=== PATIENT | male | born 1975 | race Caucasian/White ===

== ENCOUNTER 2020-07-18 09:04 | Outpatient (CLI) | payer BC, SELFPAY ==
--- NOTE | 2020-07-31 14:57 | WPDHOMESLEEP ---
Sleep Study - Home Unattended Date of Study: 07/18/20 Ordering Provider: Savannah Arango PA-C Interpreting Provider: Celsa Reyes MD Home Sleep Study Type: Apnea Link Air Height: 1.88 m Weight: 120.202 kg Body Mass Index: 34.0 Neck Circumference (inches): 16 [place]: 14 Reason for Sleep Study Waking multiple times at night, non restorative sleep, excessive daytime sleepiness Sleep History Boni Severino is a 45-year-old man with anxiety who complains of waking up multiple times during the night. Sometimes, he is not able to go back to sleep. He wakes up tired every day. He takes a nap as soon as work is over. He has fatigue and complete lack of energy. He has difficulty falling asleep, staying asleep and difficulty waking up in the morning. There is a positive family history with his father having sleep apnea. The previous to testing was determined by insurance, he had a finger tip oximeter and he felt that he could not sleep with it on so he did not have a good night of sleep. He constantly snores and is constantly loud enough that others complain about it. He constantly awakens at night with heartburn, belching or coughing. He occasionally awakens from sleep feeling short of breath. He occasionally has trouble sleep with a cold. He constantly wakes up gasping for breath at night, constantly has breathing problems at night observed by others, constantly sweats excessively at night in frequently notices his heart pounding or beating irregularly at night. He occasionally falls asleep during the day. He rarely falls asleep involuntarily. He never falls asleep while driving. He does not fall asleep while exerting physical effort. He does not have loss of muscle tone with strong emotion. He frequently has daytime difficulties due to excessive sleepiness. 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 He rarely feels paralyzed on waking or falling asleep. He rarely has vivid dreamlike scenes upon awakening or falling asleep. He does not feel afraid to go to sleep. He occasionally has nightmares. He rarely remembers his dreams. He constantly has racing thoughts, constantly has feelings of sadness, depression and anxiety. He frequently has muscular tension. He frequently notices parts of his body jerking. He rarely kicks at night. He frequently has chronic an aching feelings in his legs and leg pain during the night. He rarely has morning jaw pain. He rarely grinds his teeth at night. He frequently has bothered by pain during the day and occasionally is awakened by pain at night. He frequently wakes up feeling stiff in the morning, constantly wakes up with sore achy muscles and occasionally wakes up with pain in the neck and spine. He has headaches, nightmares, dizziness, fatigue, concentration difficulties and he takes antacids regularly. Normal bedtime is 9:00 p.m. falling asleep within 30 minutes waking up 5-10 times at night. Sometimes he will go back to sleep and 20 minutes and at other times it may take 3 hours for him to return to sleep. On average he is awake for an hour. While awake, he thinks about different things, sometimes thinks about very trivial things. He does not mention nocturia. He takes naps in the afternoon. He does not feel refreshed after short nap. He is usually drowsy in the morning for an hour. He does drink coffee. Habits: Never smoked tobacco. Caffeine 4 servings a day. No alcohol or recreational drugs. [facility] Past Medical History Medical History (Updated 07/31/20 @ 15:16 by Celsa Reyes MD) Anxiety Family History Family History Father Hypertension Mother Family history of malignant neoplasm of breast in first degree relative Other Family history of glaucoma Family history of hypercholesterolemia Family history of malignant neoplasm of breast Malignant neoplasm of prostate Social History Social History (Reviewed 07/31/20 @ 15:14
[2020-07-31 15:18] VITALS: BMI 34.0
== END 2020-07-18 09:05 | disposition home or self-care (01) ==
PROVIDERS: PCP Family Medicine; Visit Provider Physician Assistant
DX: G47.33 Obstructive sleep apnea (adult) (pediatric) (principal)
CPT/HCPCS: 95806

== ENCOUNTER → 2020-08-22 00:29 | Outpatient (CLI) | payer BC, SELFPAY ==
[2020-08-22 18:31] LABS: SARS-CoV-2 RNA PCR Negative
== END ==
PROVIDERS: PCP Family Medicine; Visit Provider Internal Medicine Critical Care Medicine
DX: Z01.812 Encounter for preprocedural laboratory examination (principal); Z20.822 Contact with and (suspected) exposure to COVID-19
CPT/HCPCS: C9803; U0003; U0005

== ENCOUNTER 2020-08-24 06:58 | Outpatient (CLI) | payer BC, SELFPAY ==
--- NOTE | 2020-09-04 11:16 | WPDSLEEPSTUD ---
Sleep Study Date of Study: 08/24/20 Ordering Provider: Jessica Snyder MD Interpreting Physician: Celsa Reyes MD Sleep Study Type: CPAP Titration Height: 1.88 m Weight: 113.398 kg Body Mass Index: 32.1 Neck Circumference (inches): 17 [place]: 13 Reason for Sleep Study 07/18/2020 Home sleep test; severe obstructive sleep apnea, AHI 33, desaturation 82%, 13 minutes or 3% of the study spent below 88%; 41% central apneas, 58% obstructive/mixed apneas; he presents for CPAP titration. Sleep History Boni Severino is a 45-year-old man with anxiety who complains of waking up multiple times during the night. Sometimes, he is not able to go back to sleep. He wakes up tired every day. He takes a nap as soon as work is over. He has fatigue and complete lack of energy. He has difficulty falling asleep, staying asleep and difficulty waking up in the morning. There is a positive family history with his father having sleep apnea. The previous to testing was determined by insurance, he had a finger tip oximeter and he felt that he could not sleep with it on so he did not have a good night of sleep. He constantly snores and is constantly loud enough that others complain about it. He constantly awakens at night with heartburn, belching or coughing. He occasionally awakens from sleep feeling short of breath. He occasionally has trouble sleep with a cold. He constantly wakes up gasping for breath at night, constantly has breathing problems at night observed by others, constantly sweats excessively at night in frequently notices his heart pounding or beating irregularly at night. He occasionally falls asleep during the day. He rarely falls asleep involuntarily. He never falls asleep while driving. He does not fall asleep while exerting physical effort. He does not have loss of muscle tone with strong emotion. He frequently has daytime difficulties due to excessive sleepiness. 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 He rarely feels paralyzed on waking or falling asleep. He rarely has vivid dreamlike scenes upon awakening or falling asleep. He does not feel afraid to go to sleep. He occasionally has nightmares. He rarely remembers his dreams. He constantly has racing thoughts, constantly has feelings of sadness, depression and anxiety. He frequently has muscular tension. He frequently notices parts of his body jerking. He rarely kicks at night. He frequently has chronic an aching feelings in his legs and leg pain during the night. He rarely has morning jaw pain. He rarely grinds his teeth at night. He frequently has bothered by pain during the day and occasionally is awakened by pain at night. He frequently wakes up feeling stiff in the morning, constantly wakes up with sore achy muscles and occasionally wakes up with pain in the neck and spine. He has headaches, nightmares, dizziness, fatigue, concentration difficulties and he takes antacids regularly. Normal bedtime is 9:00 p.m. falling asleep within 30 minutes, waking up 5-10 times at night. Sometimes he will go back to sleep within 20 minutes. At other times, it may take 3 hours for him to return to sleep. On average he is awake for an hour. While awake, he thinks about different things, sometimes thinks about very trivial things. He does not mention nocturia. He takes naps in the afternoon. He does not feel refreshed after short nap. He is usually drowsy in the morning for an hour. He does drink coffee. Habits: Never smoked tobacco. Caffeine 4 servings a day. No alcohol or recreational drugs. [facility] Past Medical History Medical History (Updated 09/04/20 @ 13:15 by Celsa Reyes MD) Anxiety Dysthymic disorder Mixed hyperlipidemia Obstructive sleep apnea home sleep test 07/18/2020: severe obstructive sleep apnea / AHI 33/desaturation 82%; obstructive/mixed apneas (58% of the total number of apneas). With 55% central /mixed apneas), 41% central apneas Family History Family History (Re
[2020-09-04 13:21] VITALS: BMI 32.1
== END 2020-08-24 06:59 | disposition home or self-care (01) ==
LOC: ANHCSM 06:59
PROVIDERS: PCP Family Medicine; Visit Provider Family Medicine
DX: G47.33 Obstructive sleep apnea (adult) (pediatric) (principal)
CPT/HCPCS: 95811

== ENCOUNTER 2020-09-21 07:32 | Outpatient (CLI) | payer BC, SELFPAY ==
--- NOTE | 2020-09-21 07:43 | ECHO_ITS ---
Patient Info Name: Boni Severino Age: 45 years : 1975 Gender: Male Ht: 72 in Wt: 250 lbs BSA: 2.44 m2 HR: 72 bpm BP: 146 / 96 mmHg Technical Quality: Good Exam Date: 09/21/2020 8:13 AM Exam Location: [facility] Patient Status: Outpatient Admit Date: 09/21/2020 Staff Ordering Physician: Jessica Snyder MD [employer] Department Manager: London Herzog, JOSEPH, RT Attending Provider: Jessica Snyder MD Referring Physician: Lillian DAVENPORT; Exam Type: CA echo doppler color flow Study Info Indications I51.89 - Other ill-defined heart diseases Complete two-dimensional, color flow and Doppler transthoracic echocardiogram is performed. Strain analysis performed. Summary 1. Complete two-dimensional, color flow and Doppler transthoracic echocardiogram is performed. 2. Left ventricular chamber dimension is normal. 3. Left ventricular systolic function is normal, estimated at 55-60%. 4. The left ventricular diastolic function is grade I diastolic dysfunction. 5. E/e' 5 is not elevated. 6. Global longitudinal strain is normal at -17.5%. 7. Left atrial chamber dimension is mildly enlarged. 8. There is mild mitral valve regurgitation. Left Ventricle E/e' 5 is not elevated. Global longitudinal strain is normal at -17.5%. Left ventricular chamber dimension is normal. Left ventricular systolic function is normal, estimated at 55-60%. The left ventricular diastolic function is grade I diastolic dysfunction. Right Ventricle Right ventricular systolic function is normal and with normal TAPSE 2.1 cm. Right ventricular chamber dimension is normal. Left Atria Left atrial chamber dimension is mildly enlarged. Right Atria Right atrial chamber dimension is normal. Aortic Valve The aortic valve is trileaflet. There is no aortic valve stenosis. There is no aortic valve regurgitation. Pulmonic Valve There is no pulmonic regurgitation. Mitral Valve There is no mitral valve stenosis. There is mild mitral valve regurgitation. Tricuspid Valve There is no tricuspid valve regurgitation. Pericardium/Pleural There is no pericardial effusion. Inferior Vena Cava Normal inferior vena cava with >50% collapse upon inspiration consistent with normal right atrial pressure, 5 mmHg. Aorta The aortic root size at the sinus of Valsalva is normal. Left Ventricular Outflow Tract Name Value Normal LVOT 2D LVOT Diameter 2.2 cm LVOT Doppler LVOT Peak Gradient 2 mmHg LVOT Mean Gradient 1 mmHg LVOT VTI 17 cm LVOT VTI/AV VTI Ratio 0.7 LVOT Stroke Volume 65 ml LVOT CO 5.1 l/min LVOT CI 2.1 l/min/m2 Mitral Valve Name Value Normal MV Doppler
== END 2020-09-21 07:33 | disposition home or self-care (01) ==
PROVIDERS: PCP Family Medicine; Visit Provider Family Medicine
DX: G47.31 Primary central sleep apnea (principal); I51.89 Other ill-defined heart diseases
CPT/HCPCS: 93306

== ENCOUNTER → 2021-06-22 08:44 | Outpatient (CLI) | payer BC, SELFPAY ==
--- NOTE | ~2021-06-22 | XR_ITS ---
XR thoracic spine 2V 06/22/2021 09:39 Indication: Back pain Procedure: 3 views of the thoracic spine Comparison: No prior studies for comparison. Findings: Vertebral body heights are maintained. Mild dextrocurvature of the thoracic spine. No mari torie soft tissue abnormality. No fracture or traumatic malalignment. Surrounding osseous structures are within normal limits. Impression: 1: Mild dextrocurvature of the thoracic spine. Reviewed, dictated and finalized at location B. [employer] Impression: 1: Mild dextrocurvature of the thoracic spine.
--- NOTE | ~2021-06-22 | XR_ITS ---
EXAMINATION: [id number] EXAM DATE: 06/22/2021 09:39 INDICATION: Right side rib pain anteriorly radiates posteriorly, left rib pain lateral side; bending over causes pain in mid back. no prev fx, no surg. Patient is concerned for multiple myeloma from [facility]. TECHNIQUE: Frontal projection of the upper left ribs, frontal projection of the lower left ribs, obli que projection of the left ribs. Frontal projection of the upper right ribs, frontal projection of t he lower right ribs, oblique projection of the right ribs, frontal chest x-ray(s) for interpretation. There is no prior study for comparison. FINDINGS: There are no displaced acute rib fractures identified. There are no osteoblastic or osteoly tic lesions identified. No confluent consolidation, pneumothorax or pleural effusion suspected. Cardi omediastinal silhouette is normal. IMPRESSION: Unremarkable ribs. Reviewed, dictated and finalized at location A. [employer] MANAGER IMPRESSION: Unremarkable ribs.
== END ==
PROVIDERS: PCP Family Medicine; Visit Provider Physician Assistant
DX: M54.9 Dorsalgia, unspecified (principal); R07.81 Pleurodynia
CPT/HCPCS: 71111; 72070